=== PATIENT | female | born 1990 | race Caucasian/White ===

== ENCOUNTER → 2017-12-28 | Outpatient (CLI) | payer OTHER, BC | LOC: CAT 08:21 | DX: N20.0 Calculus of kidney (principal); N13.30 Unspecified hydronephrosis; K76.0 Fatty (change of) liver, not elsewhere classified; R59.9 Enlarged lymph nodes, unspecified ==

== ENCOUNTER 2018-01-10 06:05 | Emergency (ER) | payer OTHER, BC ==
[~2018-01-10] VITALS: Ht 154.9 cm; Wt 65.8 kg
[2018-01-10] MEDS ORDERED: HYDROCODON-ACE1 EAC7 PO (06:19)
[2018-01-10] MEDS ORDERED: ZOLOFT50 MG PO (06:19)
[2018-01-10] MEDS ORDERED: IBUPROFEN 200200 M1 PO (06:20)
[2018-01-10 06:26] LABS: SQUAMOUS 0-3 Few /LPF (0-3); URINE BILIRUBIN NEGATIVE (Negative); URINE BLOOD 2+ (Negative); URINE CLARITY CLEAR; URINE COLOR YELLOW; URINE GLUCOSE-RANDOM* NEGATIVE (Negative); URINE KETONES NEGATIVE (Negative); URINE LEUKOCYTES-REFLEX 2+ (Negative); URINE NITRITE-REFLEX NEGATIVE (Negative); URINE PROTEIN (DIPSTICK) NEGATIVE (Negative); URINE UROBILINOGEN 0.2 E.U./dl (0.2-1.0)
[2018-01-10 06:27] LABS: BACTERIA-REFLEX 1-9 Few /HPF (None Seen); CASTS None Seen /LPF (None Seen); CRYSTALS None Seen /LPF (None Seen); URINE RBC 0-2 Rare /HPF (0-2); URINE WBC-REFLEX 0-5 Rare /HPF (0-5)
[2018-01-10 06:52] LABS: ABSOLUTE NEUTROPHILS 11.4 thou/uL (1.4-8.2); BASOPHILS 0.6 % (0.0-2.0); EOSINOPHILS 0.2 % (0.0-3.0); HEMATOCRIT 40.4 % (37.0-47.0); HEMOGLOBIN 13.6 gm/dL (12.0-15.0); LYMPHOCYTES 8.3 % (24.0-44.0); MCH 27.8 pg (26.0-34.0); MCHC 33.8 g/dL (28.0-37.0); MCV 82.4 fL (80.0-100.0); MONOCYTES 3.2 % (1.0-8.0); PLATELET COUNT 262 thou/uL (150-400); POLYS 87.7 % (36.0-66.0); RDW 15.3 % (10.5-14.5)
[2018-01-10 07:06] LABS: CALCIUM 9.3 mg/dL (8.5-10.1); CREATININE 0.9 mg/dL (0.6-1.0); POTASSIUM 3.6 mmol/L (3.5-5.1)
[2018-01-10 07:12] LABS: TOTAL BILIRUBIN 0.4 mg/dL (<0.1-1.0); TOTAL PROTEIN 7.3 g/dL (6.4-8.2)
[2018-01-10] MEDS ORDERED: IBUPROFEN 600600 M1 PO (08:03)
[2018-01-10] MEDS ORDERED: REGLAN 10 MG TA10 MG PO (08:03)
[2018-01-10 08:48] VITALS: BP 113/74
== END 2018-01-10 08:49 | disposition home or self-care (01) ==
LOC: ER 06:05
PROVIDERS: Emergency Medicine
DX: N20.0 Calculus of kidney (principal)